=== PATIENT | female | born 1990 | race Two or more races ===

== ENCOUNTER 2020-10-18 09:03 | Outpatient (CLI) | payer BC | END 2020-10-18 09:05 | disposition home or self-care (01) | LOC: LAB 09:03 | DX: Z03.818 Encounter for observation for suspected exposure to other biological agents ruled out (principal) ==

== ENCOUNTER → 2023-02-04 13:31 | Outpatient (CLI) | payer OTHER | END | disposition home or self-care (01) | LOC: LAB 13:31 | PROVIDERS: ATTEND Emergency Medicine Pediatric Emergency Medicine | DX: R53.83 Other fatigue (principal); E66.3 Overweight; E78.49 Other hyperlipidemia; E56.9 Vitamin deficiency, unspecified; E55.9 Vitamin D deficiency, unspecified ==